=== PATIENT | male | born 2000 | race Caucasian/White ===

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

== ENCOUNTER 2019-11-11 14:10 | Emergency (ER) | payer OTHER ==
[2019-11-11] MEDS ORDERED: SODIUM CHLORIDE 0.9% 500 ML INFUS.BAG IV ONE (14:16)
[2019-11-11] MEDS ORDERED: FAMOTIDINE 20 MG/50 ML IVPB 20 MG/50 ML MG IVPB ONE ×2 (14:16→14:21)
[2019-11-11 14:19] VITALS: BMI 25.0
[2019-11-11] MEDS ORDERED: MAG HYDROX/AL HYDROX/SIMETH 30 ML UNIT-DOSE CUP PO ONE (15:12)
[2019-11-11] MEDS ORDERED: MAG HYDROX/AL HYDROX/SIMETH 30 ML UNIT-DOSE CUP ONE (15:14)
[2019-11-11] MEDS ORDERED: KETOROLAC TROMETHAMINE 15 MG/ML VIAL IVPUSH ONE (15:35)
[2019-11-11] MEDS ORDERED: KETOROLAC TROMETHAMINE 15 MG/ML VIAL ONE (15:46)
[2019-11-11 16:16] LABS: MEAN CELL VOLUME 94.1 fl (80-96)
[2019-11-11 16:19] LABS: BASO % 0.4 % (0-2.0); EOS % 0.4 % (0-4.5); HEMATOCRIT 50.6 % (35.4-49); LYMPH % 8.9 % (8-40); MCH 31.5 pg (25.7-33.7); MCHC 33.5 g/dl (32.0-35.9); MEAN PLT VOLUME 9.3 fl (7.5-11.1); MONO % 9.6 % (3.8-10.2); NEUT % 80.7 % (42.8-82.8); PLATELET COUNT 194 K/MM3 (134-434); RBC 5.38 M/mm3 (4.00-5.60); RDW 12.1 % (11.9-15.9); WHITE BLOOD COUNT 12.1 K/mm3 (4.0-10.8)
[2019-11-11 16:44] LABS: ALBUMIN 3.8 g/dl (3.4-5.0); BILIRUBIN,TOTAL 1.4 mg/dl (0.2-1); CALCIUM 8.6 mg/dl (8.5-10); POTASSIUM 3.7 mmol/L (3.5-5.1); TOT PROT 6.4 g/dl (6.4-8.2)
[2019-11-11] MEDS ORDERED: morphine CARPU-JECT 4 MG/1 ML DISP.SYRIN IVPUSH ONE (17:59)
[2019-11-11] MEDS ORDERED: morphine SULFATE 4 MG/ML VIAL ONE (18:10)
[2019-11-11] MEDS ORDERED: ONDANSETRON 4 MG/2 ML VIAL IVPUSH ONE (18:12)
[2019-11-11] MEDS ORDERED: ONDANSETRON 4 MG/2 ML VIAL ONE (18:13)
--- NOTE | 2019-11-11 18:32 | PDOC ---
Documentation entered by Hugh Contreras SCRIBE, acting as scribe for Aaron Araya MD. Aaron Araya MD: This documentation has been prepared by the Ben stanley Aiswarya, SCRIBE, under my direction and personally reviewed by me in its entirety. I confirm that the documentation accurately reflects all work, treatment, procedures, and medical decision making performed by me. History of Present Illness - General Chief Complaint: Pain Stated Complaint: STOMACH PAIN Time Seen by Provider: 11/11/19 14:16 History Source: Patient Exam Limitations: No Limitations - History of Present Illness Initial Comments: 11/11/19 14:31 The patient is a 19 year old female, with no significant PMH, who presents to the emergency department with abdominal pain that began 4 hours ago. The patient states abdominal pain is located to the epigastric area and endorses associated symptoms of bloating and nausea. He also reports only having eggs and coffee today. Patient mentions that he had a similar pain one year ago and was seen by a barrel tester and drainer. The patient denies chest pain, shortness of breath, headache and dizziness. Denies fever, chills, vomiting, diarrhea and constipation.Denies dysuria, frequency, urgency and hematuria. Allergies: NKDA Past surgical history:None reported Social history: None reported PCP: Alisa Fabian Past History - Past Medical History Allergies/Adverse Reactions: Allergies Allergy/AdvReac Type Severity Reaction Status Date / Time Penicillins Allergy Hives Verified 11/11/19 14:14 Home Medications: Ambulatory Orders NK [No Known Home Medication] 11/11/19 Asthma: No Diabetes: No - Immunization History Immunization Up to Date: Yes - Psycho Social/Smoking Cessation Hx Smoking Status: No Smoking History: Never smoked Have you smoked in the past 12 months: No Number of Cigarettes Smoked Daily: 0 Hx Alcohol Use: No Drug/Substance Use Hx: No Substance Use Type: None Review of Systems - Review of Systems Able to Perform ROS?: Yes Comments:: 11/11/19 14:31 GENERAL/CONSTITUTIONAL: No fever or chills. No weakness. HEAD, EYES, EARS, NOSE AND THROAT: No change in vision. No ear pain or discharge. No sore throat. CARDIOVASCULAR: No chest pain or shortness of breath. RESPIRATORY: No cough, wheezing, or hemoptysis. GASTROINTESTINAL: +nausea. No vomiting, diarrhea or constipation. GENITOURINARY: No dysuria, frequency, or change in urination. MUSCULOSKELETAL: No joint or muscle swelling or pain. No neck or back pain. SKIN: No rash NEUROLOGIC: No headache, vertigo, loss of consciousness, or change in strength/ sensation. ENDOCRINE: No increased thirst. No abnormal weight change. HEMATOLOGIC/LYMPHATIC: No anemia, easy bleeding, or history of blood clots. ALLERGIC/IMMUNOLOGIC: No hives or skin allergy. *Physical Exam - Vital Signs Last Vital Signs Temp Pulse Resp BP Pulse Ox 98.0 F 76 16 140/100 98 11/11/19 14:12 11/11/19 14:12 11/11/19 14:12 11/11/19 14:12 11/11/19 14:12 - Physical Exam 11/11/19 14:31 GENERAL: Awake, alert, and fully oriented, in no acute distress HEAD: No signs of trauma EYES: PERRLA, EOMI, sclera anicteric, conjunctiva clear ENT: Auricles normal inspection, hearing grossly normal, nares patent, oropharynx clear without exudates. Moist mucosa NECK: Normal ROM, supple, no lymphadenopathy, JVD, or masses LUNGS: Breath sounds equal, clear to auscultation bilaterally. No wheezes, and no crackles HEART: Regular rate and rhythm, normal S1 and S2, no murmurs, rubs or gallops ABDOMEN: +epigastric tenderness. No guarding, no rebound. No masses EXTREMITIES: Normal range of motion, no edema. No clubbing or cyanosis. No cords, erythema, or tenderness NEUROLOGICAL: Cranial nerves II through XII grossly intact. Normal speech, normal gait SKIN: Warm, Dry, normal turgor, no rashes or lesions noted. ED Treatment Course - LABORATORY CBC & Chemistry Diagram: 11/11/19 15:45 11/11/19 16:15 - ADDITIONAL ORDERS Additional order review: Laboratory Results 11/11/19 11/11/19 16:15 16:15 Sodium 135 L Potassium 3.7 Chloride 105 Carbon Dioxide 24 Anion Gap 6 L BUN 22.0 H Creatinine 1.0 Est GFR (CKD-EPI)AfAm 124.14 Est GFR (CKD-EPI)NonAf 107.11 Random Glucose 81 Calcium 8.6 Total Bilirubin 1.4 H AST 21 ALT 18 Alkaline Phosphatase 49 Total Protein 6.4 Albumin 3.8 Lipase 93 11/11/19 15:45 RBC 5.38 MCV 94.1 MCHC 33.5 RDW 12.1 MPV 9.3 Neutrophils % 80.7 Lymphocytes % 8.9 D Monocytes % 9.6 D Eosinophils % 0.4 D Basophils % 0.4 - RADIOLOGY Radiology Studies Ordered: Category Date Time Status ABDOMEN FLAT & UPRIGHT [RAD] Stat Radiology 11/11/19 18:00 Ordered - Medications Given in the ED: ED Medications Discontinued Medications Generic Name Dose Route Start Last Admin Trade Name Klarissa PRN Reason Stop Dose Admin Al Hydroxide/Mg Hydroxide 30 ml 11/11/19 15:12 11/11/19 15:17 Mylanta Oral Suspension - PO 11/11/19 15:13 30 ml ONCE ONE Administration Famotidine/Sodium Chloride 20 mg in 50 mls @ 100 mls/hr 11/11/19 14:16 14:30 Pepcid 20 Mg Premixed Ivpb - IVPB 11/11/19 14:45 100 mls/hr ONCE ONE Administration Ketorolac Tromethamine 15 mg 11/11/19 15:35 11/11/19 15:50 Toradol Injection - IVPUSH 11/11/19 15:36 15 mg ONCE ONE Administration Morphine Sulfate 4 mg 11/11/19 17:59 11/11/19 18:20 Morphine Injection - IVPUSH 11/11/19 18:00 4 mg ONCE ONE Administration Ondansetron HCl 4 mg 11/11/19 18:12 11/11/19 18:15 Zofran Injection IVPUSH 11/11/19 18:13 4 mg ONCE ONE Administration Sodium Chloride 1,000 ml 11/11/19 14:16 11/11/19 14:30 Normal Saline - IV 11/11/19 14:17 1,000 ml ONCE ONE Administration Medical Decision Making - Medical Decision Making 11/11/19 18:33 location most c/w gastritis but failed to respond to pepcid and maalox. IV opioids image Discharge - Discharge Information Problems reviewed: Yes Clinical Impression/Diagnosis: Abdominal pain Qualifiers: Abdominal location: generalized Qualified Code(s): R10.84 - Generalized abdominal pain Condition: Good - Follow up/Referral Referrals: Alisa Fabian [Primary Care Provider] - - Patient Discharge Instructions - Post Discharge Activity
[2019-11-11 19:42] VITALS: BP 123/75; PULSE 72; TEMP 98.5
--- NOTE | 2019-11-11 20:01 | PDOC ---
*Physical Exam - Vital Signs Last Vital Signs Temp Pulse Resp BP Pulse Ox 98.5 F 72 15 123/75 98 11/11/19 19:30 11/11/19 19:30 11/11/19 19:30 11/11/19 19:30 11/11/19 19:30 ED Treatment Course - LABORATORY CBC & Chemistry Diagram: 11/11/19 15:45 11/11/19 16:15 - ADDITIONAL ORDERS Additional order review: Laboratory Results 11/11/19 11/11/19 16:15 16:15 Sodium 135 L Potassium 3.7 Chloride 105 Carbon Dioxide 24 Anion Gap 6 L BUN 22.0 H Creatinine 1.0 Est GFR (CKD-EPI)AfAm 124.14 Est GFR (CKD-EPI)NonAf 107.11 Random Glucose 81 Calcium 8.6 Total Bilirubin 1.4 H AST 21 ALT 18 Alkaline Phosphatase 49 Total Protein 6.4 Albumin 3.8 Lipase 93 11/11/19 15:45 RBC 5.38 MCV 94.1 MCHC 33.5 RDW 12.1 MPV 9.3 Neutrophils % 80.7 Lymphocytes % 8.9 D Monocytes % 9.6 D Eosinophils % 0.4 D Basophils % 0.4 - Medications Given in the ED: ED Medications Discontinued Medications Generic Name Dose Route Start Last Admin Trade Name Freq PRN Reason Stop Dose Admin Al Hydroxide/Mg Hydroxide 30 ml 11/11/19 15:12 11/11/19 15:17 Mylanta Oral Suspension - PO 11/11/19 15:13 30 ml ONCE ONE Administration Famotidine/Sodium Chloride 20 mg in 50 mls @ 100 mls/hr 11/11/19 14:16 14:30 Pepcid 20 Mg Premixed Ivpb - IVPB 11/11/19 14:45 100 mls/hr ONCE ONE Administration Ketorolac Tromethamine 15 mg 11/11/19 15:35 11/11/19 15:50 Toradol Injection - IVPUSH 11/11/19 15:36 15 mg ONCE ONE Administration Morphine Sulfate 4 mg 11/11/19 17:59 11/11/19 18:20 Morphine Injection - IVPUSH 11/11/19 18:00 4 mg ONCE ONE Administration Ondansetron HCl 4 mg 11/11/19 18:12 11/11/19 18:15 Zofran Injection IVPUSH 11/11/19 18:13 4 mg ONCE ONE Administration Sodium Chloride 1,000 ml 11/11/19 14:16 11/11/19 14:30 Normal Saline - IV 11/11/19 14:17 1,000 ml ONCE ONE Administration ED Progress Note - Progress Note Progress Note: 11/11/19 19:59 Care of this patient was transferred to de from Dr. Araya at 1900 hrs. Patient is a 19-year-old male who comes in complaining of epigastric pain. Patient had a work-up that included a white count of 12.1 but no left shift. Patient's BUN and H&H were also somewhat elevated indicating he most likely was dry clinically Patient received A liter of fluid as well as Zofran and a H2 gregorio. Patient had a CAT scan that was read by the radiologist moderate fluid-filled stomach question recent food ingestion. Increased fluid also within the colon and small bowel loops most likely secondary to a anterior colitis. Patient symptoms most likely are secondary to a viral etiology. Patient given copy of his CAT scan and discharged home. Patient will follow-up with his primary care doctor. Discharge - Discharge Information Problems reviewed: Yes Clinical Impression/Diagnosis: Viral gastroenteritis Abdominal pain Qualifiers: Abdominal location: generalized Qualified Code(s): R10.84 - Generalized abdominal pain Condition: Good - Admission No - Follow up/Referral Referrals: Alisa Fabian [Primary Care Provider] - - Patient Discharge Instructions Additional Instructions: For the pain take Tylenol 2 extra strength tablets as often as every 6 hours as needed. For nausea take Zofran 1 tablet every 6-8 hours as needed I sent a prescription to your pharmacy for the Zofran. If not improved within 48 hours follow-up with a primary care doctor. Return to the emergency department immediately with ANY new, persistent or worsening symptoms. Continue any medications as previously prescribed by your physician. You should follow up with your primary doctor as soon as possible regarding today's emergency department visit. . Please make sure your doctor reviews the results of your emergency evaluation. Thank you for coming to the Emergency Department today for your care. It was a pleasure to see you today. Please note that your evaluation is INCOMPLETE until you follow-up with your doctor. - Post Discharge Activity Work/Back to School Note: Back to School
== END 2019-11-11 20:19 | disposition home or self-care (01) ==
LOC: FER 14:10
PROC: 3E0333Z Introduction of Anti-inflammatory into Peripheral Vein, Percutaneous Approach (ICD-10-PCS; principal; 2019-11-11)
PROC: 3E033NZ Introduction of Analgesics, Hypnotics, Sedatives into Peripheral Vein, Percutaneous Approach (ICD-10-PCS; 2019-11-11)
PROC: 3E033GC Introduction of Other Therapeutic Substance into Peripheral Vein, Percutaneous Approach (ICD-10-PCS; 2019-11-11)
DX: R10.84 Generalized abdominal pain (principal); Z88.0 Allergy status to penicillin
CPT/HCPCS: 36415; 74019-TC-FY; 74177-TC; 80053; 83690; 85025; 99283-25; Q9967